=== PATIENT | male | born 1975 | race Caucasian/White ===

== ENCOUNTER 2019-09-25 00:28 | Inpatient (IN) | payer OTHER ==
[~2019-09-25] VITALS: Ht 175.3 cm; Wt 84.0 kg
[2019-09-25] MEDS ORDERED: AMIODARONE 450 MG in DEXTROSE 5% 241 ML IV PRN ×2 (00:55→02:06)
[2019-09-25] MEDS ORDERED: SODIUM CHLORIDE 0.9% 1,000 ML IV ONE (00:58)
[2019-09-25] MEDS ORDERED: MORPHINE SULFATE 4 MG/ML, 1ML IVPush PRN ×2 (01:00→22:00)
--- NOTE | 2019-09-25 01:01 | NUR ---
Patient transferred from [facility] for syncope and cardiac arrhythmias. Patient states he had a syncopal episode at home today. Patient has a hx of sick sinus syndrome with a pacemaker. During his time at [facility], patient experienced an episode of vtach. Patient's BP remained stable; he was placed on an Ami infusion, controlling his rate. Patient is in NAD. Respirations even and unlabored.
[2019-09-25] MEDS ORDERED: MORPHINE SULFATE 4 MG/ML, 1ML ONE (01:13)
--- NOTE | 2019-09-25 01:23 | NUR ---
PACEMAKER INTERORROGATION COMPLETED
[2019-09-25] MEDS ORDERED: PLEASE ENTER ALLERGIES MC SCH (01:30)
[2019-09-25] MEDS ORDERED: FILTER 0.22 MICRON IV PRN ×2 (01:30→02:30)
[2019-09-25] MEDS ORDERED: AMIODARONE 150 MG in DEXTROSE 5% 97 ML IVPB ONE (02:06)
[2019-09-25] MEDS ORDERED: hydrALAzine 20 MG/ML, 1ML IVPush PRN (02:30)
--- NOTE | 2019-09-25 02:30 | NUR ---
PROVIDER DR REARDON VERBALY SAID NOT TO GIVE AMIODARONE 10MG OVER 10 MIN BOLUS SINCE DRIP HAS BEEN STARTED WHEN [employer] ASKED.
[2019-09-25] MEDS ORDERED: ZOLP10TA PO (02:48)
[2019-09-25] MEDS ORDERED: TADA5TAB2 PO (02:48)
[2019-09-25] MEDS ORDERED: VENL150T PO (02:48)
--- NOTE | 2019-09-25 02:48 | NUR ---
Report given to STALIN Cantu. Patient to be transferred to room 504.
[2019-09-25 03:11] VITALS: BP 132/91
[2019-09-25 05:15] LABS: BASOPHILS # (AUTO) 0.02 x10^3/uL (0-0.1); BASOPHILS % (AUTO) 0 % (0-1); EOSINOPHILS # (AUTO) 0.01 x10^3/uL (0-0.4); EOSINOPHILS % (AUTO) 0 % (1-7); LYMPHOCYTES # (AUTO) 1.05 x10^3/uL (1-3.4); LYMPHOCYTES % (AUTO) 11 % (22-44); MD NO; MEAN CORPUSCULAR HEMOGLOBIN 28.4 pg (27.5-34.5); MEAN CORPUSCULAR HGB CONC 32.7 g/dL (33.2-36.2); MEAN PLATELET VOLUME 7.9 fL (7.4-10.4); MONOCYTES # (AUTO) 0.66 x10^3/uL (0.2-0.8); MONOCYTES % (AUTO) 7 % (2-9); NEUTROPHILS # (AUTO) 8.17 x10^3/uL (1.8-6.8); NEUTROPHILS % (AUTO) 82 % (42-75); PLATELET COUNT 246 x10^3/uL (130-400); RED BLOOD COUNT 5.27 x10^6/uL (4.38-5.82); RED CELL DISTRIBUTION WIDTH 13.1 % (9.4-14.8)
[2019-09-25 05:23] LABS: INTERNATIONAL NORMALIZED RATIO 0.97 (0.93-1.1); PROTHROMBIN TIME 10.3 Seconds (9.6-11.5)
[2019-09-25 05:29] LABS: ANION GAP 8 mmol/L (5-15); CALCIUM 8.9 mg/dL (8.5-10.1); CHLORIDE 109 mmol/L (98-107); CREATININE 0.79 mg/dL (0.7-1.3)
[2019-09-25 05:33] LABS: TROPONIN I < 0.015 ng/mL (0.000-0.045)
[2019-09-25 07:18] VITALS: BP 152/82
[2019-09-25] MEDS: ACETAMINOPHEN 500 MG TABLET PO PRN (08:27)
[2019-09-25] MEDS: METOPROLOL TARTRATE 25 MG TAB PO SCH ×2 (08:28→18:29)
[2019-09-25 09:49] LABS: CHOL/HDL RATIO 2.4; LDL/HDL RATIO 1.1 (0.5-3.0)
[2019-09-25] MEDS: VENLAFAXINE 75 MG CAP ER PO SCH (15:05)
[2019-09-25] MEDS: OXYcodone IR 5MG TABLET PO PRN (15:17)
[2019-09-25 15:25] VITALS: BP 150/92
[2019-09-25] MEDS: KETOROLAC 30 MG/1 ML IVPush PRN (17:10)
[2019-09-25] MEDS: ONDANSETRON 2MG/ML, 2ML IVPush PRN ×2 (17:10→21:58)
[2019-09-25 21:10] VITALS: BP 150/94
[2019-09-25] MEDS: ZOLPIDEM 10MG TABLET PO PRN (21:19)
[2019-09-26] MEDS: KETOROLAC 30 MG/1 ML IVPush PRN ×2 (03:15→21:18)
[2019-09-26 03:18] VITALS: BP 147/87
[2019-09-26 05:32] LABS: BASOPHILS # (AUTO) 0.04 x10^3/uL (0-0.1); BASOPHILS % (AUTO) 1 % (0-1); EOSINOPHILS # (AUTO) 0.12 x10^3/uL (0-0.4); EOSINOPHILS % (AUTO) 2 % (1-7); LYMPHOCYTES # (AUTO) 1.78 x10^3/uL (1-3.4); LYMPHOCYTES % (AUTO) 24 % (22-44); MD NO; MEAN CORPUSCULAR HEMOGLOBIN 28.3 pg (27.5-34.5); MEAN CORPUSCULAR HGB CONC 32.5 g/dL (33.2-36.2); MEAN CORPUSCULAR VOLUME 87.3 fL (81-97); MEAN PLATELET VOLUME 8.3 fL (7.4-10.4); MONOCYTES # (AUTO) 0.65 x10^3/uL (0.2-0.8); MONOCYTES % (AUTO) 9 % (2-9); NEUTROPHILS # (AUTO) 5.01 x10^3/uL (1.8-6.8); NEUTROPHILS % (AUTO) 66 % (42-75); PLATELET COUNT 223 x10^3/uL (130-400); RED BLOOD COUNT 5.43 x10^6/uL (4.38-5.82); RED CELL DISTRIBUTION WIDTH 13.4 % (9.4-14.8)
[2019-09-26 05:39] LABS: CALCIUM 8.8 mg/dL (8.5-10.1); CHLORIDE 108 mmol/L (98-107)
[2019-09-26 05:48] LABS: ANION GAP 7 mmol/L (5-15); CREATININE 1.03 mg/dL (0.7-1.3)
[2019-09-26] MEDS: METOPROLOL TARTRATE 25 MG TAB PO SCH ×2 (06:33→17:54)
[2019-09-26] MEDS ORDERED: VENLAFAXINE 75 MG CAP ER PO SCH (09:00)
[2019-09-26 09:12] VITALS: BP 126/81
[2019-09-26] MEDS: VENLAFAXINE 75 MG CAP ER PO SCH (10:09)
[2019-09-26] MEDS: SODIUM CHLORIDE 0.9% 1,000 ML IV SCH ×2 (10:10→17:53)
[2019-09-26] MEDS: ACETAMINOPHEN 500 MG TABLET PO PRN (12:02)
[2019-09-26 14:25] VITALS: BP 150/93
[2019-09-26] MEDS: OXYcodone IR 5MG TABLET PO PRN (16:46)
[2019-09-26 20:33] VITALS: BP 165/115
[2019-09-26] MEDS: ZOLPIDEM 10MG TABLET PO PRN (21:18)
[2019-09-27 00:51] VITALS: BP 130/70
[2019-09-27] MEDS: SODIUM CHLORIDE 0.9% 1,000 ML IV SCH ×2 (02:09→10:30)
[2019-09-27 05:20] LABS: CALCIUM 8.3 mg/dL (8.5-10.1); CHLORIDE 112 mmol/L (98-107); CREATININE 0.94 mg/dL (0.7-1.3)
[2019-09-27 05:23] VITALS: BP 133/82
[2019-09-27] MEDS: METOPROLOL TARTRATE 25 MG TAB PO SCH ×2 (05:25→17:42)
[2019-09-27 05:32] LABS: ANION GAP 4 mmol/L (5-15)
[2019-09-27 06:41] VITALS: BP 145/86
[2019-09-27] MEDS: VENLAFAXINE 75 MG CAP ER PO SCH (10:29)
[2019-09-27 13:22] VITALS: BP 149/90
[2019-09-27] MEDS ORDERED: VERAPAMIL 2.5 MG/ML, 2ML ONE ×2 (15:31→15:45)
[2019-09-27] MEDS ORDERED: BIVALIRUDIN 250 MG ONE (15:31)
[2019-09-27] MEDS ORDERED: FENTANYL PF 100 MCG/2ML ONE (15:31)
[2019-09-27] MEDS ORDERED: MIDAZOLAM 1 MG/ML, 5ML ONE (15:31)
[2019-09-27] MEDS ORDERED: TICAGRELOR 90 MG TABLET ONE (15:31)
[2019-09-27] MEDS ORDERED: LIDOCAINE 2%, 20ML ONE (15:32)
[2019-09-27] MEDS ORDERED: HEPARIN 1,000 UNITS/ML, 10ML ONE (15:32)
[2019-09-27] MEDS ORDERED: SODIUM CHLORIDE 0.9% 1,000 ML IV SCH (16:35)
[2019-09-27] MEDS: OXYcodone IR 5MG TABLET PO PRN (18:58)
[2019-09-27 19:03] VITALS: BP 143/97
[2019-09-27] MEDS: ZOLPIDEM 10MG TABLET PO PRN (21:15)
[2019-09-27 21:16] VITALS: BP 160/104
[2019-09-27] MEDS: KETOROLAC 30 MG/1 ML IVPush PRN (23:38)
[2019-09-28 00:41] VITALS: BP 147/93
[2019-09-28] MEDS: ACETAMINOPHEN 500 MG TABLET PO PRN (01:03)
[2019-09-28] MEDS: OXYcodone IR 5MG TABLET PO PRN (01:03)
[2019-09-28 05:43] VITALS: BP 124/71
[2019-09-28] MEDS: METOPROLOL TARTRATE 25 MG TAB PO SCH (05:45)
[2019-09-28] MEDS: KETOROLAC 30 MG/1 ML IVPush PRN (05:45)
[2019-09-28 06:38] VITALS: BP 133/84
[2019-09-28] MEDS: VENLAFAXINE 75 MG CAP ER PO SCH (08:27)
[2019-09-28] MEDS ORDERED: BUTALB/APAP/CAFFEINE 50MG/325MG/40MG PO PRN (09:30)
[2019-09-28] MEDS ORDERED: METO25TA35 PO (11:35)
== END 2019-09-28 13:45 | disposition home or self-care (01) | DRG 287 ==
LOC: ED 02:09 → EDIP 02:32 → 5SO 03:07 → DCLOUNGE 09-28 13:32
PROVIDERS: ADMIT Internal Medicine; ATTEND Internal Medicine
PROC: 0JPT32Z Removal of Monitoring Device from Trunk Subcutaneous Tissue and Fascia, Percutaneous Approach (ICD-10-PCS; principal; 2019-09-27)
PROC: 4A023N7 Measurement of Cardiac Sampling and Pressure, Left Heart, Percutaneous Approach (ICD-10-PCS; 2019-09-27)
PROC: B2111ZZ Fluoroscopy of Multiple Coronary Arteries using Low Osmolar Contrast (ICD-10-PCS; 2019-09-27)
PROC: 4B02XSZ Measurement of Cardiac Pacemaker, External Approach (ICD-10-PCS; 2019-09-27)
PROC: B2151ZZ Fluoroscopy of Left Heart using Low Osmolar Contrast (ICD-10-PCS; 2019-09-27)
DX: I48.0 Paroxysmal atrial fibrillation (principal); D68.59 Other primary thrombophilia; I49.5 Sick sinus syndrome; G89.29 Other chronic pain; M54.9 Dorsalgia, unspecified; N40.0 Benign prostatic hyperplasia without lower urinary tract symptoms; F41.9 Anxiety disorder, unspecified; F12.90 Cannabis use, unspecified, uncomplicated; I10 Essential (primary) hypertension; I47.2 Ventricular tachycardia; F32.9 Major depressive disorder, single episode, unspecified; G90.9 Disorder of the autonomic nervous system, unspecified; F17.200 Nicotine dependence, unspecified, uncomplicated; Z79.01 Long term (current) use of anticoagulants; Z95.0 Presence of cardiac pacemaker; Z98.1 Arthrodesis status; Z86.74 Personal history of sudden cardiac arrest; Z82.49 Family history of ischemic heart disease and other diseases of the circulatory system; Z84.89 Family history of other specified conditions
CPT/HCPCS: 33286; 36415; 93458; 96374; 99285; J3490; 80048; 80061; 83735; 84443; 84484; 85025; 85610; 93005; 93306; 99156; C1769; C1894; G0378; J0583; J1644; J1885; J2250; J2405; J3010; J7060; J0282; J0360; J2270; J7030; Q9967